=== PATIENT | male | born 1930 | race Caucasian/White ===

== ENCOUNTER → 2017-12-29 17:57 | Outpatient (CLI) | payer MEDICARE, BC | END | disposition home or self-care (01) | LOC: D.LABREF 17:57 | DX: D72.829 Elevated white blood cell count, unspecified (principal); R31.9 Hematuria, unspecified ==

== ENCOUNTER 2018-02-22 06:21 | Day surgery (SDC) | payer MEDICARE, BC ==
[~2018-02-22] VITALS: Ht 198.1 cm; Wt 98.4 kg
--- NOTE | ~2018-02-22 | OP ---
PATIENT NAME: CELESTE MARTINEZ MEDICAL RECORD: [id number] :31 LOCATION:[facility] ADMISSION DATE: SURGEON: ADARSH HARVEY MD DATE OF OPERATION: 02/22/2018 SURGEON: Adarsh Harvey MD ANESTHESIA: TIVA by Varsha Guerra CRNA DIAGNOSIS: Obstructive benign prostatic hypertrophy. PROCEDURES: Cystoscopy and UroLift implantation times 4 units. FINDINGS: Single ureteral orifices bilaterally. No bladder tumors. Trabeculated bladder. Obstructive bilateral lateral lobe. BLOOD LOSS: None. CLINICAL HISTORY: This is an 87-year-old male, who has obstructive voiding symptoms. He has been on tamsulosin and finasteride for some time. He still has significant symptoms in spite of the medication. He comes today to have a cystoscopy and a UroLift procedure. He was also being evaluated for microscopic hematuria. He is on Eliquis for chronic atrial fibrillation. His IPSS score was 15 and his quality of life is 6. HE IS ALLERGIC TO ADHESIVE TAPE, BETADINE, VASELINE, LATEX, NEOSPORIN AND SCOPOLAMINE. We obtained cardiac clearance from his cost estimating manager, Dr. Mata. He was given Ancef abalone diver to the OR. DESCRIPTION OF PROCEDURE: The patient was given IV sedation. He was placed in dorsal lithotomy position and prepped and draped. The UroLift scope with 30-degree lens was used for visualization. He has a fairly long prostatic urethra. The lateral lobes are obstructive. The median lobe was minor. Other cystoscopic findings are as outlined above. At the bladder neck level in the anterior lateral lobes, we pulled back about 1.5 cm from the bladder neck and placed the UroLift device on each side. At the level of the verumontanum, we also placed one UroLift device on each side for a total of 4 units. The urethral channel was quite wide open. The placement of the last device caused a bit of bleeding. The visualization was much more difficult as a result, but since he had a wide open channel, we decided not to try attempting placement of any other units. The patient was awakened and brought to the recovery room. TRANSINT:[id number] Voice Confirmation ID: [id number] DOCUMENT ID: [id number] ADARSH HARVEY MD at 1220 CC: [id number] DICTATION DATE: 02/22/18 100 GANG SAW OPERATOR: 02/22/18 1206 [facility] [address] [place] [address]
[~2018-02-22 06:21] MED LIST: COREG 3.1253.125 MG PO; ELIQUIS5 MG PO; FLOMAX0.4 MG PO; PROSCAR5 MG PO; PROTONIX40 MG PO; ZOCOR40 MG PO
[2018-02-22 07:11] LABS: HEMATOCRIT 46.1 % (42.0-54.0); HEMOGLOBIN 15.9 g/dL (13.5-17.5); MCH 33.9 pg (26.0-34.0); MCHC 34.5 g/dL (31.0-37.0); MCV 98.3 fL (80.0-100.0); MEAN PLATELET VOLUME 10.5 fL (7.4-10.4); PLATELET COUNT 167 10x3/uL (130-400); RBC 4.69 10x6/uL (4.20-6.10); RDW 13.7 % (11.5-14.5); WBC 11.8 10x3/uL (4.8-10.8)
[2018-02-22 07:13] LABS: CALC OSMOLALITY 285 mosm/kg (275-300); CALCIUM 8.9 mg/dL (8.5-10.1); CARBON DIOXIDE 31.6 mmol/L (21.0-32.0); CHLORIDE - SERUM 107 mmol/L (98-107); CREATININE - SERUM 0.9 mg/dL (0.6-1.3); GLUCOSE 112 mg/dL (74-106); SODIUM 143 mmol/L (136-145); UREA NITROGEN 13 mg/dL (7-18); eGFR NON AFRICAN AMERICAN 85 mL/min (90-120)
[2018-02-22 07:43] VITALS: BP 138/82; Ht 198.1 cm; Wt 98.4 kg
[2018-02-22 08:00] LABS: ANISOCYTOSIS OCC; EOSINOPHILS 1 % (0-7); LYMPHOCYTES 43 % (15-50); MONOCYTES 6 % (2-11); NEUTROPHILS 38 % (40-80); PLATELET ESTIMATE NORMAL
== END 2018-02-22 12:00 | disposition home or self-care (01) ==
LOC: D.OPS 06:21 → D.PAN 09:00 → D.OPS 09:00
PROVIDERS: Anesthesiology
DX: N40.1 Benign prostatic hyperplasia with lower urinary tract symptoms (principal); N13.8 Other obstructive and reflux uropathy; I10 Essential (primary) hypertension; Z95.0 Presence of cardiac pacemaker